=== PATIENT | female | born 2000 | race Caucasian/White ===

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

== ENCOUNTER 2019-02-04 14:24 | Emergency (ER) | payer OTHER ==
[2019-02-04 14:48] VITALS: BP 123/78
--- NOTE | 2019-02-04 15:05 | UC ---
Lower Extremity/Ankle HPI - HPI Summary HPI Summary: Patient is a 18yo female presenting with left ankle pain since 6 months ago when she sprained it that has worsened over the last two weeks. Describes it as "shocking pain" that is worse with ambulation and better with elevation and rest. She also notes bilateral pain in arches of feet. Denies numbness and tingling. Notes swelling. Denies bruising. Denies decreased ROM. She also complains of diffuse abdominal pain and 4 episodes of vomiting yesterday afternoon. Notes continued nausea today. Denies decreased appetite or fluid intake. Denies diarrhea. Notes history of ovarian cyst. LMP was one week ago. Denies possibility of . Denies urinary symptoms. Denies fever and chills. Denies SOB and chest pain. - History of Current Complaint Chief Complaint: UCLowerExtremity Stated Complaint: LEG PAIN AND SWELLING, AND VOMITING Hx Obtained From: Patient Hx Last Menstrual Period: 01/27/09 Severity Currently: Mild Pain Intensity: 3 Pain Scale Used: 0-10 Numeric - Allergies/Home Medications Allergies/Adverse Reactions: Allergies Allergy/AdvReac Type Severity Reaction Status Date / Time No Known Allergies Allergy Verified 02/04/19 14:34 PMH/Surg Hx/FS Hx/Imm Hx Other History Of: Negative For: HIV, Hepatitis B, Hepatitis C, Anticoagulant Therapy - Surgical History Surgical History: Yes Surgery Procedure, Year, and Place: T & A. EAR TUBES - Family History Known Family History: Positive: Cardiac Disease, Hypertension Negative: Blood Disorder - Social History Alcohol Use: Rare Substance Use Type: Marijuana Smoking Status (MU): Light Every Day Tobacco Smoker Type: Cigarettes Amount Used/How Often: 2-4 cig. a day Length of Time of Smoking/Using Tobacco: 5 Years Have You Smoked in the Last Year: Yes Household Exposure Type: Cigarettes - Immunization History Most Recent Influenza Vaccination: fall 2016 Vaccination Up to Date: Yes Review of Systems All Other Systems Reviewed And Are Negative: Yes Constitutional: Positive: Negative. Negative: Fever, Chills, Fatigue Skin: Positive: Negative Eyes: Positive: Negative ENT: Positive: Negative Respiratory: Positive: Negative. Negative: Shortness Of Breath, Cough Cardiovascular: Positive: Negative. Negative: Palpitations, Chest Pain Gastrointestinal: Positive: Vomiting, Nausea. Negative: Abdominal Pain, Diarrhea Genitourinary: Positive: Negative Neurovascular: Positive: Negative Musculoskeletal: Positive: Arthralgia, Edema. Negative: Decreased ROM, Myalgia Neurological: Positive: Negative. Negative: Headache Physical Exam Triage Information Reviewed: Yes Appearance: Well-Appearing, No Pain Distress, Obese Vital Signs: Initial Vital Signs Temp 99.4 F 02/04/19 14:36 Pulse 88 02/04/19 14:36 Resp 16 02/04/19 14:36 BP 123/78 02/04/19 14:36 Pulse Ox 99 02/04/19 14:36 Vital Signs Reviewed: Yes Eyes: Positive: Conjunctiva Clear ENT: Positive: Hearing grossly normal Neck exam: Normal Neck: Positive: Supple Respiratory Exam: Normal Respiratory: Positive: Lungs clear, Normal breath sounds, No respiratory distress, No accessory muscle use. Negative: Crackles, Rhonchi, Stridor, Wheezing Cardiovascular Exam: Normal Cardiovascular: Positive: RRR, Pulses Normal, Brisk Capillary Refill. Negative : Tachycardia Abdominal Exam: Normal Abdomen Description: Positive: Nontender, Soft. Negative: CVA Tenderness (R), CVA Tenderness (L), Distended, Guarding, McBurney's Point Tenderness Bowel Sounds: Positive: Present Musculoskeletal Exam: Normal Musculoskeletal: Positive: Strength Intact, ROM Intact, No Edema, Other: - no tenderness to palpation of left foot, ankle, leg, or knee. negative alma sign Neurological: Positive: Alert Psychological: Positive: Age Appropriate Behavior Skin Exam: Normal Skin: Positive: Other - no erythema or ecchymosis noted of left ankle, foot, leg , or knee. Diagnostics - Radiology left ankle Radiology Interpretation Completed By: Radiologist Summary of Radiographic Findings: FINDINGS: The soft tissues are unremarkable. The bone mineralization is within normal limits. No fracture is identified. An accessory navicular bone is redemonstrated. Anatomic alignment is maintained. The joint spaces are preserved. IMPRESSION: NO EVIDENCE FOR FRACTURE. Lower Extremity Course/Dx - Course Course Of Treatment: Discussed negative ankle xrays with patient and need for follow up with ortho if pain in ankle and arches continues. 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 Discussed stable VS with patient and that she may take zofran as prescribed for nausea. She received zofran and ibuprofen here for symptomatic relief. Instructed her to follow up if symptoms persist or go to the ED if symptoms worsen. Patient voiced understanding and agreed to the treatment plan. Discussed patient with Dr. Rosario who also agreed to the treatment plan. - Differential Dx/Diagnosis Provider Diagnosis: Left ankle pain, Nausea, Intermittent abdominal pain Discharge ED - Sign-Out/Discharge Documenting (check all that apply): Patient Departure All imaging exams completed and their final reports reviewed: Yes - Discharge Plan Condition: Stable Disposition: HOME Prescriptions: Ondansetron ODT TAB* [Zofran 4 MG Odt TAB*] 4 mg PO Q8H PRN #6 tab.odt PRN Reason: Nausea/Vomiting Forms: *Work Release Referrals: Marilu Castillo DO [Primary Care Provider] - If Needed Eris Fernandez MD [Medical Doctor] - If Needed Additional Instructions: As discussed, the xrays of the ankle did not show any fractures. Use rest, ice, elevation, and compression with an patrick wrap to help relieve ankle pain. You may also use over the counter pain medications as directed for relief of pain. If pain does not resolve, follow up with your PCP or orthopedics as listed below. Return or go to the emergency room if pain worsens, the foot becomes cold and numb, or you are not able to bear weight. As discussed, take the zofran as prescribed for your nausea and vomiting. Get plenty of rest and fluids. Eat a bland diet, such as bread, bananas, and rice while symptoms are present. If your symptoms do not resolve or you develop fever, excessive vomiting, or are unable to keep fluids down, go to the emergency department. - Billing Disposition and Condition Condition: STABLE Disposition: Home
[2019-02-04] MEDS ORDERED: Ondansetron ODT TAB* 4 MG SL ONE (15:14)
[2019-02-04] MEDS ORDERED: Ibuprofen TAB* 600 MG PO ONE (15:14)
== END 2019-02-04 16:05 | disposition home or self-care (01) ==
LOC: UCEAST 14:24
DX: M25.572 Pain in left ankle and joints of left foot (principal); M25.571 Pain in right ankle and joints of right foot; R10.9 Unspecified abdominal pain; R11.2 Nausea with vomiting, unspecified; E66.9 Obesity, unspecified; F17.210 Nicotine dependence, cigarettes, uncomplicated
CPT/HCPCS: 99212; A9270-GY; G0463

== ENCOUNTER 2019-02-28 14:25 | Emergency (ER) | payer OTHER ==
--- OUTSIDE RECORDS SUMMARY | 2019-02-28 14:29 | XMS REPORT | Continuity of Care Document ---
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 Inactive: 12/15/2018 Sprain of left ankle Onset: 12/15/2018 Inactive: 12/15/2018 Obesity Onset: 09/12/2018 Inactive: 09/12/2018 Arthralgia of the ankle and/or foot Onset: 09/12/2018 Inactive: 09/12/2018 Smoker Onset: 09/12/2018 Inactive: 09/12/2018 Social History Type Date Description Comments Sex Unknown Allergies, Adverse Reactions, Alerts Description No Information Available Medications Active Medications SIG Qnty Indications Ordering Date Provider Miconazole Nitrate 1 Isabel twice daily 1units Unknown 12/15/2018 Powder N/A; apply twice daily to rash on abdomen Citalopram Hydrobromide Oral; Take One 30tabs Unknown 07/24/2018 Tablet By Mouth 40mg Tablets Every Day Risperidone Oral; Take One 60tabs Unknown 01/10/2018 0.5mg Tablets Tablet By Mouth Twice A Day Methylphenidate Oral; Take 30tabs Unknown 09/04/2017 Hydrochloride ER Onetablet By 36mg Mouth Every Day Tablets ER 24HR Maximum Daily Dose = 1 Medications Administered in Office Medication SIG Qnty Indications Ordering Provider Date Meningococcal Conjugate Vaccine Unknown 11/30/2016 (Menveo) Injection Injection 150 MG (Depo-Provera) Unknown 07/30/2014 Injection Injection 150 MG (Depo-Provera) Unknown 04/23/2014 Injection Injection 150 MG (Depo-Provera) Unknown 01/22/2014 Injection Meningococcal Conjugate Vaccine Unknown 12/25/2010 (Menveo) Injection DTaP Vaccine Younger Than 7 Unknown 04/01/2003 (Infanrix) Injection DTaP Vaccine Younger Than 7 Unknown 07/10/2000 (Infanrix) Injection DTaP Vaccine Younger Than 7 Unknown 01/08/2000 (Infanrix) Injection DTaP Vaccine Younger Than 7 Unknown 1999 (Infanrix) Injection DTaP Vaccine Younger Than 7 Unknown 1999 (Infanrix) Injection Immunizations CPT Code Status Date Vaccine Lot # [id number] Given 04/25/2018 Influenza Virus Vaccine, Quadrivalent, Split Virus, Im Use 0.5ML 13148 Given 04/25/2018 Flu < 65 years 11934 Given 04/25/2018 Influenza Virus Vaccine, Quadrivalent, Split, Preservative Free 55916 Given 04/25/2018 Flumist 45159 Given 04/25/2018 Flu High Dose 78338 Given 04/25/2018 Influenza Virus Vaccine, Split, Preserv Free, Intradermal Use 77599 Given 05/03/2017 Bexsero - Men B 47972 Given 01/11/2017 Influenza Virus Vaccine, Split, Preserv Free, Intradermal Use 51133 Given 01/11/2017 Flu High Dose 30473 Given 01/11/2017 Flumist 70750 Given 01/11/2017 Influenza Virus Vaccine, Quadrivalent, Split, Preservative Free 00719 Given 01/11/2017 Flu < 65 years 20611 Given 01/11/2017 Influenza Virus Vaccine, Quadrivalent, Split Virus, Im Use 0.5ML 20257 Given 03/08/2016 Influenza Virus Vaccine, Quadrivalent, Split Virus, Im Use 0.5ML 78603 Given 03/08/2016 Flu < 65 years 32019 Given 03/08/2016 Influenza Virus Vaccine, Quadrivalent, Split, Preservative Free 25183 Given 03/08/2016 Flumist 43142 Given 03/08/2016 Flu High Dose 77256 Given 03/08/2016 Influenza Virus Vaccine, Split, Preserv Free, Intradermal Use 08824 Given 03/03/2015 Flu High Dose 53492 Given 03/03/2015 Flumist 18260 Given 03/03/2015 Influenza Virus Vaccine, Quadrivalent, Split, Preservative Free 02066 Given 03/03/2015 Flu < 65 years 10754 Given 03/03/2015 Influenza Virus Vaccine, Quadrivalent, Split, Im Use 0.25ML 82185 Given 03/03/2015 Influenza Virus Vaccine, Quadrivalent, Split, Im Use 0.25ML 27326 Given 03/03/2015 Influenza Virus Vaccine, Quadrivalent, Split, Im Use 0.25ML 25556 Given 01/19/2013 Influenza Virus Vaccine Split Virus Intramuscular Use 0.5ML 68992 Given 01/19/2013 Flu High Dose 61329 Given 01/19/2013 Flumist 41927 Given 01/19/2013 Influenza Virus Vaccine, Quadrivalent, Split, Preservative Free 93392 Given 01/19/2013 Flu < 65 years 62037 Given 01/19/2013 Influenza Virus Vaccine, Quadrivalent, Split, Im Use 0.25ML 03261 Given 01/19/2013 Influenza Virus Vaccine, Quadrivalent, Split, Im Use 0.25ML 45764 Given 01/19/2013 Influenza Virus Vaccine, Quadrivalent, Split, Im Use 0.25ML 24895 Given 01/19/2013 Influenza Virus Vaccine, Quadrivalent, Split, Im Use 0.25ML 19657 Given 07/24/2012 HPV Gardasil 9 88960 Given 07/24/2012 HPV Vaccine Type 6,11,16,18 3 Dose Schedule Intramuscular Use 90638 Given 03/25/2012 HPV Gardasil 9 89095 Given 03/25/2012 HPV Vaccine Type 6,11,16,18 3 Dose Schedule Intramuscular Use 77072 Given 01/10/2012 HPV Vaccine Type 6,11,16,18 3 Dose Schedule Intramuscular Use 64419 Given 01/10/2012 HPV Gardasil 9 60349 Given 01/10/2012 Influenza Virus Vaccine Intranasal 56898 Given 01/10/2012 Flu High Dose 46456 Given 01/10/2012 Flumist 10081 Given 01/10/2012 Influenza Virus Vaccine, Quadrivalent, Split, Preservative Free 34437 Given 01/10/2012 Flu < 65 years 75716 Given 01/10/2012 Influenza Virus Vaccine, Quadrivalent, Split, Im Use 0.25ML 48162 Given 01/10/2012 Influenza Virus Vaccine, Quadrivalent, Split, Im Use 0.25ML 00014 Given 01/10/2012 Influenza Virus Vaccine, Quadrivalent, Split, Im Use 0.25ML 89970 Given 12/25/2010 Hep A Adult for >18 yrs Havrix/Vaqta 82344 Given 12/25/2010 Hep A Peds for <19yrs Havrix/Vaqta 80584 Given 12/25/2010 Influenza Virus Vaccine Intranasal 91247 Given 12/25/2010 Influenza Virus Vaccine, Quadrivalent, Split, Im Use 0.25ML 44272 Given 12/25/2010 Mening Acwy - Menveo/Menactra 27270 Given 11/08/2010 Tdap - Boostrix/Adacel 49568 Given 11/08/2010 Tdap - Boostrix/Adacel 40694 Given 11/08/2010 Tdap - Boostrix/Adacel 44930 Given 04/13/2010 Influenza Virus Vaccine, Quadrivalent, Split, Im Use 0.25ML 68349 Given 04/13/2010 Influenza Virus Vaccine, Quadrivalent, Split, Im Use 0.25ML 25756 Given 04/13/2010 Influenza Virus Vaccine Split Virus Intramuscular Use 0.5ML 95116 Given 12/22/2009 Hep A Adult for >18 yrs Havrix/Vaqta 76743 Given 12/22/2009 Hep A Peds for <19yrs Havrix/Vaqta 25184 Given 05/10/2009 Influenza Virus Vaccine, Quadrivalent, Split, Im Use 0.25ML 98547 Given 05/10/2009 H1N1 Immunization Admin (Intramuscular,Intranasal) Inc Counseling 07403 Given 01/28/2009 Influenza Virus Vaccine, Quadrivalent, Split, Im Use 0.25ML 89240 Given 01/28/2009 Influenza Virus Vaccine Split Virus Intramuscular Use 0.5ML 92021 Given 01/30/2008 Influenza Virus Vaccine, Quadrivalent, Split, Im Use 0.25ML 80727 Given 01/30/2008 Influenza Virus Vaccine Split Virus Intramuscular Use 0.5ML 91496 Given 12/16/2007 Varicella (Chicken Pox) Vaccine 14669 Given 03/27/2006 Influenza Virus Vaccine Intranasal 79790 Given 02/13/2006 Influenza Virus Vaccine Intranasal 20329 Given 2005 Influenza Virus Vaccine Split Virus Intramuscular Use 0.5ML 83261 Given 04/01/2003 Polio - Ipol 73672 Given 04/01/2003 MMR Vaccine 98674 Given 04/11/2000 Polio - Ipol 83010 Given 04/11/2000 MMR Vaccine 21812 Given 1999 Polio - Ipol 21532 Given 1999 Polio - Ipol Vital Signs Date Vital Result Comment 02/06/2019 4:22pm BP Systolic 116 mmHg BP Diastolic 62 mmHg Heart Rate 109 /min Body Temperature 98.2 F O2 % BldC Oximetry 98 % 12/15/2018 3:47pm BP Systolic 128 mmHg Weight 289.00 lb Heart Rate 90 /min Body Temperature 97.5 F O2 % BldC Oximetry 97 % Weight Percentile >97th Results Description No Information Available Procedures Date Code Description Status 12/15/2018 39779 Brief Emotional/Behav Assessment W/ Scoring Doc Per Completed Standard Inst 09/12/2018 45430 Brief Emotional/Behav Assessment W/ Scoring Doc Per Completed Standard Inst Medical Devices Description No Information Available Encounters Type Date Location Provider Dx Diagnosis Office Visit 02/06/2019 4:15p [facility] Marilu Castillo, DO R11.0 Nausea M25.571 Pain in right ankle and joints of right foot Assessments Date Code Description Provider 02/06/2019 R11.0 Nausea Marilu CastilloDO 02/06/2019 M25.571 Pain in right ankle and joints of right foot Marilu CastilloDO Plan of Treatment 02/06/2019 - Marilu Castillo DOR11.0 NauseaComments:Suspect viral illness and things are improvingDenies possibility of Discussed continue supportive care and zofran if neededcontinue bland diet and increase as toleratedtake a few more days torecover before 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
--- OUTSIDE RECORDS SUMMARY | 2019-02-28 14:29 | XMS REPORT | Continuity of Care Document ---
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 Medicine Problems Active Problems Provider Date Sprain of ankle Donaldo Espino MD Onset: 02/28/2018 Social History Type Date Description Comments Sex Unknown ETOH Use Denies alcohol use Tobacco Use Start: Unknown Patient is a current smoker, smokes every day Smoking Status Reviewed: 02/25/19 Patient is a current smoker, smokes every day Exercise Type/Frequency Exercises sporadically Allergies, Adverse Reactions, Alerts Description No Known Drug Allergies Medications Active Medications SIG Qnty Indications Ordering Provider Date Risperidone 1/2 pill twice a Unknown 0.5mg Tablets day by mouth for 2 weeks then 1/2 pill in in the morning and 1 in at night Citalopram Hydrobromide 1 by mouth every Unknown 20mg day Tablets Methylphenidate Unknown Hydrochloride CD Immunizations Description No Information Available Vital Signs Date Vital Result Comment 02/25/2019 3:01pm Height 68 inches 5'8" Weight 280.00 lb Heart Rate 96 /min BP Systolic 120 mmHg BP Diastolic 72 mmHg Respiratory Rate 16 /min Pain Level 2 BMI (Body Mass Index) 42.6 kg/m2 Height Percentile 93 % Weight Percentile >97th 02/28/2018 11:03am Height 68 inches 5'8" Weight 281.00 lb Heart Rate 88 /min Respiratory Rate 18 /min Body Temperature 98.7 F Pain Level 4 BMI (Body Mass Index) 42.7 kg/m2 Blood Pressure Percentile 0 % Height Percentile 93 % Weight Percentile >97th Results Description No Information Available Procedures Description No Information Available Medical Devices Description No Information Available Encounters Description No Information Available Assessments Date Code Description Provider 02/25/2019 S93.492D Sprain of other ligament of left ankle, Donaldo Espino MD subsequent encounter 02/25/2019 M25.562 Pain in left knee Donaldo Espino MD Plan of Treatment 02/25/2019 - Donaldo Espino, MDS93.492D Sprain of other ligament of left ankle, subsequent encounterNew Therapy:Physical TherapyFollow up:As [id number] Pain in left kneeNew Therapy:Physical Therapy Functional Status Description No Information Available Mental Status Description No Information Available Referrals Description No Information Available
[2019-02-28 14:58] VITALS: BP 124/63
[2019-02-28] MEDS ORDERED: Ketorolac *IM* INJ* 60 MG/2 ML VIAL IM ONE (15:13)
--- NOTE | 2019-02-28 15:13 | UC ---
UC General HPI - HPI Summary HPI Summary: started with mild abd pain 4 days ago, vomited and had diarrhea next day. has had little appetite for 2-3 day s, today has migraine headache - took Tylenol today but no other pain meds. 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 Hx Last Menstrual Period: 02/23/2019 Onset/Duration: Gradual Onset Timing: Constant Onset Severity: Mild Current Severity: Moderate Pain Intensity: 7 Associated Signs & Symptoms: Positive: Abdominal Pain, Headache, Vomiting - Allergy/Home Medications Allergies/Adverse Reactions: Allergies Allergy/AdvReac Type Severity Reaction Status Date / Time No Known Allergies Allergy Verified 02/28/19 14:58 PMH/Surg Hx/FS Hx/Imm Hx Previously Healthy: Yes GI/ History: Other - ovarian cysts Neurological History: Migraine Psychological History: Depression Other History Of: Negative For: HIV, Hepatitis B, Hepatitis C, Anticoagulant Therapy - Surgical History Surgical History: Yes Surgery Procedure, Year, and Place: T & A. EAR TUBES - Family History Known Family History: Positive: Cardiac Disease, Hypertension Negative: Blood Disorder - Social History Occupation: Employed Full-time - [employer] Lives: With Family Alcohol Use: Rare Substance Use Type: Marijuana Smoking Status (MU): Light Every Day Tobacco Smoker Type: Cigarettes Amount Used/How Often: 2-4 cig. a day Length of Time of Smoking/Using Tobacco: 5 Years Have You Smoked in the Last Year: Yes Household Exposure Type: Cigarettes Cessation Counseling: Patient Advised to Stop - Immunization History Most Recent Influenza Vaccination: fall 2016 Vaccination Up to Date: Yes Review of Systems All Other Systems Reviewed And Are Negative: Yes Constitutional: Positive: Negative. Negative: Fever, Chills Skin: Positive: Negative. Negative: Rash Respiratory: Positive: Negative Cardiovascular: Positive: Negative Gastrointestinal: Positive: Abdominal Pain, Vomiting, Diarrhea, Nausea Genitourinary: Positive: Negative Neurological: Positive: Headache Psychological: Positive: Negative Is Patient Immunocompromised?: No Physical Exam Triage Information Reviewed: Yes Appearance: Pain Distress - holding head, Obese Vital Signs: Initial Vital Signs Temp 97.8 F 02/28/19 14:51 Pulse 96 02/28/19 14:51 Resp 16 11/02/19 14:51 BP 124/63 02/28/19 14:51 Pulse Ox 97 02/28/19 14:51 Vital Signs Reviewed: Yes Eye Exam: Normal Neck exam: Normal Neck: Positive: No Lymphadenopathy Respiratory Exam: Normal Respiratory: Positive: Lungs clear Cardiovascular Exam: Normal Cardiovascular: Positive: RRR Abdomen Description: Positive: No Organomegaly, Soft, Other: - minor tenderness bilateral lower abd. no rebound tenderness. Negative: CVA Tenderness (R), CVA Tenderness (L), McBurney's Point Tenderness, Peritoneal Signs Skin Exam: Normal Re-Evaluation - Re-Evaluation First Eval Re-Evaluation Time: 15:30 - headache pain resolving Change: Improved Second Eval Re-Evaluation Time: 16:00 - headache and abd pain improving, no new symps Change: Improved Course/Dx - Differential Dx - Multi-Symptom Differential Diagnoses: Urinary Tract Infection, Other - ovarian cyst, virak illness, migraine - Diagnoses Provider Diagnosis: Migraine, Abdominal pain Discharge ED - Sign-Out/Discharge Documenting (check all that apply): Patient Departure All imaging exams completed and their final reports reviewed: No Studies - Discharge Plan Condition: Improved Disposition: HOME Patient Education Materials: Migraine Headache (ED), Acute Abdominal Pain (ED) Forms: *Work Release Referrals: Marilu Castillo DO [Primary Care Provider] - 2 Days (if not improving) Additional Instructions: stay on clear liquid diet for 24 hours and then advance to bland foods No ibuprofen or Aleve/Naproxen for 24hours, you may use Tylenol If your head or abdominal pain worsens at anytime please report to ER - Billing Disposition and Condition Condition: IMPROVED Disposition: Home - Attestation Statements Provider Attestation: Per institutional requirements, I have reviewed the chart, however, I was not consulted specifically or made aware of this patient by the midlevel provider. I did not personally evaluate, interact with , or disposition this patient.
== END 2019-02-28 16:15 | disposition home or self-care (01) ==
LOC: UCEAST 14:25
DX: R10.31 Right lower quadrant pain (principal); R10.32 Left lower quadrant pain; G43.909 Migraine, unspecified, not intractable, without status migrainosus; R19.7 Diarrhea, unspecified; R11.2 Nausea with vomiting, unspecified; F17.210 Nicotine dependence, cigarettes, uncomplicated
CPT/HCPCS: 96372; 99211; G0463; J1885

== ENCOUNTER 2019-03-30 15:35 | Emergency (ER) | payer OTHER ==
[2019-03-30 15:45] VITALS: BP 144/89
--- NOTE | 2019-03-30 16:24 | UC ---
Respiratory Complaint HPI - HPI Summary HPI Summary: 19 y/o female presents to the urgent care accompany by mother c/o productive cough w/ yellowish phlegm for the past 5 days. Pt reports symptoms started w/ nasal congestion, mild sore throat and PND, but now has worsen w/ the cough. Mother concerned about bronchitis. She hasn't been able to sleep well due to cough. Pt denies fever, but has experience some chills. She has been taking Mucinex PO to alleviate symptoms. Pt also c/o of a mildly painful lump in the left ring finger for the past 1 week s/p helping her Dad w/ manual work at home. She feels like a spur in her finger joint. Pain is 3/10 and has not taking anything for pain. She can move finger w/o any difficulty. Pt denies fever, SOB, wheezing, numbness or tingling sensation over her fingers, chest pain, abdominal pain, N/V/d. LMP:02/08/2019 and on OCP. Pt declines test. Pt w/ Hx of sinusitis and recurrent ear infections as per mother - History of Current Complaint Chief Complaint: UCGeneralIllness Stated Complaint: URI, FINGER ISSUE Time Seen by Provider: 03/30/19 16:23 Hx Obtained From: Patient Hx Last Menstrual Period: 1 month ago Onset/Duration: Gradual Onset, Lasting Days - 5 days, Still Present, Worse Since - 2 days Timing: Intermittent Episodes Severity Initially: Mild Severity Currently: Mild Pain Intensity: 3 Pain Scale Used: 0-10 Numeric Character: Cough: Productive, Sputum Description: - yellowish Aggravating Factors: Recumbent Position Alleviating Factors: OTC Meds Associated Signs And Symptoms: Positive: Chills, URI, Nasal Congestion, Sinus Discomfort. Negative: Fever, Wheezing - Risk Factors Pulmonary Embolism Risk Factors: Negative Cardiac Risk Factors: Negative Pseudomonas Risk Factors: Negative Tuberculosis Risk Factors: Negative - Allergies/Home Medications Allergies/Adverse Reactions: Allergies Allergy/AdvReac Type Severity Reaction Status Date / Time No Known Allergies Allergy Verified 03/30/19 15:45 Home Medications: Home Medications Control 1 tab PO DAILY 03/30/19 [History Confirmed 03/30/19] guaiFENesin [Mucinex] 03/30/19 [History] PMH/Surg Hx/FS Hx/Imm Hx Previously Healthy: Yes Psychological History: Anxiety, Depression Other History Of: Negative For: HIV, Hepatitis B, Hepatitis C, Anticoagulant Therapy - Surgical History Surgical History: Yes Surgery Procedure, Year, and Place: T & A. EAR TUBES - Family History Known Family History: Positive: Cardiac Disease, Hypertension Negative: Blood Disorder - Social History Occupation: Student Lives: With Family Alcohol Use: Rare Substance Use Type: Marijuana Smoking Status (MU): Light Every Day Tobacco Smoker Type: Cigarettes Amount Used/How Often: 2-4 cig. a day Length of Time of Smoking/Using Tobacco: 5 Years Have You Smoked in the Last Year: Yes Household Exposure Type: Cigarettes - Immunization History Most Recent Influenza Vaccination: fall 2016 Vaccination Up to Date: Yes Review of Systems All Other Systems Reviewed And Are Negative: Yes Constitutional: Positive: Chills Skin: Positive: Negative Eyes: Positive: Negative ENT: Positive: Sore Throat, Nasal Discharge - yellowish, Sinus Congestion, Sinus Pain/Tenderness, Other - PND Respiratory: Positive: Cough - productive w/ yellowish phlegm Cardiovascular: Positive: Negative Gastrointestinal: Positive: Negative Genitourinary: Positive: Negative Motor: Positive: Negative Neurovascular: Positive: Negative Musculoskeletal: Positive: Other: - left ring finger painful lump Neurological: Positive: Negative Psychological: Positive: Negative Is Patient Immunocompromised?: No Physical Exam - Summary Physical Exam Summary: Vital Signs Reviewed: Yes General: well developed, well nourished obese female sitting in the examining table w/o any apparent distress Eyes: Positive: Conjunctiva Clear - PERRLA, EOMI, fundi grossly normal ENT: Positive: Normal ENT inspection, Hearing grossly normal, Pharynx normal, Nasal congestion - edematous and erythematous nasal mucosa, Nasal drainage - yellowish drainage, TMs normal. Negative: Tonsillar swelling, Tonsillar exudate Neck: Positive: Supple, Nontender, No Lymphadenopathy Respiratory: no orthopnea or dyspnea. Able to speak in full sentences, no retractions or accessory muscle use, no tripod position, stridor, or head bobbing. Positive breath sounds bilaterally. diffuse scattered rhonchi on posterior b/L lungs, no wheezing, no crackles or rales. Cardiovascular: Positive: RRR, No Murmur, Pulses Normal, Brisk Capillary Refill Abdomen Description: Positive: Nontender, No Organomegaly, Soft. Negative: CVA Tenderness (R), CVA Tenderness (L) Bowel Sounds: Positive: Present Musculoskeletal: Left Hand/Fingers: the L hand is without obvious asymmetry or deformity when compared to the R hand. no soft tissue swelling, no erythema, atrophy, or obvious deformity. No surface trauma, open wounds,bony deformity. Normal cascade of fingers. Normal flexion and extension of fingers,. Left 4th PIPJ ventral side w/ a discrete tender discrete nodule on palpation, no swelling or redness observed. FDS and FDP intact against resistance. No focal fullness, throbbing pain, swelling of finger tip. Pulses and capillary refill WNL, positive reflexes and sensation intact Neurological Exam: Normal Psychological Exam: Normal Skin Exam: Normal Triage Information Reviewed: Yes Vital Signs: Initial Vital Signs Temp 97 F 03/30/19 15:42 Pulse 91 03/30/19 15:42 Resp 18 03/30/19 15:42 BP 144/89 03/30/19 15:42 Pulse Ox 98 03/30/19 15:42 Respiratory Course/Dx - Course Course Of Treatment: 19 y/o female presents to the urgent care accompany by mother c/o productive cough w/ yellowish phlegm for the past 5 days. Pt reports symptoms started w/ nasal congestion, mild sore throat and PND, but now has worsen w/ the cough. Mother concerned about bronchitis. She hasn't been able to sleep well due to cough. Pt denies fever, but has experience some chills. She has been taking Mucinex PO to alleviate symptoms. Pt also c/o of a mildly painful lump in the left ring finger for the past 1 week s/p helping her Dad w/ manual work at home. She feels like a spur in her finger joint. Pain is 3/10 and has not taking anything for pain. She can move finger w/o any difficulty. Pt denies fever, SOB, wheezing, numbness or tingling sensation over her fingers, chest pain, abdominal pain, N/V/d. LMP:02/08/2019 and on OCP. Pt declines test.Pt w/ Hx of sinusitis and recurrent ear infections as per mother. Hx obtained. Pt is hemodynamically stable, A&OX3, Pt w/ mild diffuse scattered rhonchi on posterior b/L lungs, no wheezing, no crackles or rales, sinusitis and possible mucous cyst in the left 4th PIPJ on examination. O2Sat: 98%. Chest X-ray ordered to r/o pneumonia: Impression: no acute cardiopulmonary disease observed. Left 4th finger X-ray ordered: IMPRESSION: #. Negative radiographic exam of the LEFT fourth finger. Pt's finger symptoms discussed w/ Dr Sinclair and she recommend f/u w/ Dr Moreno for furterh management in possible mucous cyst. For her sinusitis Pt Rx Augmentin PO and flonase nasal spray. Advised to continue w/ Mucinex to alleviate cough. Advised to Return to the clinic or PCP in 3 days. Pt advised RICE for her left finger cyst and F/u with Orthopedic Dr moreno in 3 days for further evaluation and treatment.Pt's BP is elevated today advised to decrease salt in diet, monitor BP and f/u with PCP for further management. D/C instructions explained. Mother and Pt understood and agreed with plan of care. - Differential Dx/Diagnosis Differential Diagnosis/HQI/PQRI: Asthma, Bronchitis, Influenza, Laryngitis, Lower Resp Infection, Sinusitis, Other - pneumonia Provider Diagnosis: Acute bacterial sinusitis, Mucous cyst of finger, Elevated BP without diagnosis of hypertension Discharge ED - Sign-Out/Discharge Documenting (check all that apply): Patient Departure - D/C home All imaging exams completed and their final reports reviewed: Yes - Discharge Plan Condition: Stable Disposition: HOME Prescriptions: Amoxicillin/Clavulanate TAB* [Augmentin TAB 875*] 875 mg PO BID #14 tab Fluticasone NASAL SPRAY 50MCG* [Flonase NASAL SPRAY 50MCG*] 2 spray BOTH NARES DAILY #1 btl Patient Education Materials: Sinusitis (ED) Referrals: Marilu Castillo DO [Primary Care Provider] - 3 Days Eris Moreno MD [Medical Doctor] - 3 Days Additional Instructions: 1- Please increase fluid intake and rest. take full course of antibiotics to avoid resistance. Take yogurts w/ probiotics or Culturelle to protect your GI system 2-Use Flonase as directed to help drain fluid. Also buy saline drops to clear sinuses 3-Continue taking Mucinex PO to alleviate cough 4- Please take Ibuprofen PO 600mg q6-8hrs prn after meals to alleviate finger pain. Applu ice and keep finger immobilized w/ ROGERIO bandage and avoid strenuous exercise of heavy lifting. Please f/u w/ Orthopedic Dr Moreno if pain persists for further management. 5-Please f/u w/ your PCP in 3 days if symptoms do not improve for further management and treatment 6- Your BP is elevated today. please decrease salt in your diet, monitor BP and if it continues to be elevated please f/u with your PCP for further management. - Billing Disposition and Condition Condition: STABLE Disposition: Home
[2019-03-30] MEDS ORDERED: Ibuprofen TAB* 600 MG PO ONE (16:50)
--- OUTSIDE RECORDS SUMMARY | 2019-03-31 16:27 | XMS REPORT | Continuity of Care Document ---
:2000 External Reference #:[id number] Author Name SHAINA Alvarez Address [address] [place] [address] Problems Active Problems Provider Date Adult health [...] History Type Date Description Comments Sex Unknown Tobacco Use Start: Unknown Light tobacco smoker (10 or fewer cigarettes/day) Smoking Status Reviewed: 03/04/19 Light tobacco smoker (10 or fewer cigarettes/day) Allergies, Adverse Reactions, Alerts Description No Information Available Medications Active Medications SIG Qnty Indications Ordering Date Provider Levonorgestrel/Ethinyl take 1 tab by 84tabs Z30.9 SHAINA Alvarez 2018 Estradiol mouth for 84 days 0.15-0.03mg Tablets Naproxen 1 tab by mouth 60tabs Z30.9 SHAINA Alvarez 03/04/2019 500mg Tablets twice a day Miconazole Nitrate 1 Isabel twice daily 1units [...] CPT Code Status Date Vaccine Lot # [id number] Given 04/25/2018 Influenza Virus Vaccine, Quadrivalent, Split Virus, Im Use 0.5ML 15369 Given 04/25/2018 Flu < 65 years 58346 Given 04/25/2018 Influenza Virus Vaccine, Quadrivalent, Split, Preservative Free 18543 Given 04/25/2018 Flumist 02796 Given 04/25/2018 Flu High Dose 36464 Given 04/25/2018 Influenza Virus Vaccine, Split, Preserv Free, Intradermal Use 48959 Given 05/03/2017 Bexsero - Men B 79284 Given 01/11/2017 Influenza Virus Vaccine, Split, Preserv Free, Intradermal Use 85214 Given 01/11/2017 Flu High Dose 19665 Given 01/11/2017 Flumist 15923 Given 01/11/2017 Influenza Virus Vaccine, Quadrivalent, Split, Preservative Free 66016 Given 01/11/2017 Flu < 65 years 57989 Given 01/11/2017 Influenza Virus Vaccine, Quadrivalent, Split Virus, Im Use 0.5ML 23805 Given 03/08/2016 Influenza Virus Vaccine, Quadrivalent, Split Virus, Im Use 0.5ML 16549 Given 03/08/2016 Flu < 65 years 61598 Given 03/08/2016 Influenza Virus Vaccine, Quadrivalent, Split, Preservative Free 97161 Given 03/08/2016 Flumist 26286 Given 03/08/2016 Flu High Dose 09171 Given 03/08/2016 Influenza Virus Vaccine, Split, Preserv Free, Intradermal Use 16394 Given 03/03/2015 Flu High Dose 03897 Given 03/03/2015 Flumist 85222 Given 03/03/2015 Influenza Virus Vaccine, Quadrivalent, Split, Preservative Free 74461 Given 03/03/2015 Flu < 65 years 69852 Given 03/03/2015 Influenza Virus Vaccine, Quadrivalent, Split, Im Use 0.25ML 76783 Given 03/03/2015 Influenza Virus Vaccine, Quadrivalent, Split, Im Use 0.25ML 58587 Given 03/03/2015 Influenza Virus Vaccine, Quadrivalent, Split, Im Use 0.25ML 76434 Given 01/19/2013 Influenza Virus Vaccine Split Virus Intramuscular Use 0.5ML 99652 Given 01/19/2013 Flu High Dose 98007 Given 01/19/2013 Flumist 67518 Given 01/19/2013 Influenza Virus Vaccine, Quadrivalent, Split, Preservative Free 93532 Given 01/19/2013 Flu < 65 years 04601 Given 01/19/2013 Influenza Virus Vaccine, Quadrivalent, Split, Im Use 0.25ML 97389 Given 01/19/2013 Influenza Virus Vaccine, Quadrivalent, Split, Im Use 0.25ML 97233 Given 01/19/2013 Influenza Virus Vaccine, Quadrivalent, Split, Im Use 0.25ML 39310 Given 01/19/2013 Influenza Virus Vaccine, Quadrivalent, Split, Im Use 0.25ML 94825 Given 07/24/2012 HPV Gardasil 9 90101 Given 07/24/2012 HPV Vaccine Type 6,11,16,18 3 Dose Schedule Intramuscular Use 29928 Given 03/25/2012 HPV Gardasil 9 98951 Given 03/25/2012 HPV Vaccine Type 6,11,16,18 3 Dose Schedule Intramuscular Use 71683 Given 01/10/2012 HPV Vaccine Type 6,11,16,18 3 Dose Schedule Intramuscular Use 37125 Given 01/10/2012 HPV Gardasil 9 43145 Given 01/10/2012 Influenza Virus Vaccine Intranasal 19329 Given 01/10/2012 Flu High Dose 79511 Given 01/10/2012 Flumist 48652 Given 01/10/2012 Influenza Virus Vaccine, Quadrivalent, Split, Preservative Free 59610 Given 01/10/2012 Flu < 65 years 97559 Given 01/10/2012 Influenza Virus Vaccine, Quadrivalent, Split, Im Use 0.25ML 43779 Given 01/10/2012 Influenza Virus Vaccine, Quadrivalent, Split, Im Use 0.25ML 71879 Given 01/10/2012 Influenza Virus Vaccine, Quadrivalent, Split, Im Use 0.25ML 42222 Given 12/25/2010 Hep A Adult for >18 yrs Havrix/Vaqta 58619 Given 12/25/2010 Hep A Peds for <19yrs Havrix/Vaqta 95506 Given 12/25/2010 Influenza Virus Vaccine Intranasal 67583 Given 12/25/2010 Influenza Virus Vaccine, Quadrivalent, Split, Im Use 0.25ML 87233 Given 12/25/2010 Mening Acwy - Menveo/Menactra 91324 Given 11/08/2010 Tdap - Boostrix/Adacel 84374 Given 11/08/2010 Tdap - Boostrix/Adacel 10115 Given 11/08/2010 Tdap - Boostrix/Adacel 88025 Given 04/13/2010 Influenza Virus Vaccine, Quadrivalent, Split, Im Use 0.25ML 48992 Given 04/13/2010 Influenza Virus Vaccine, Quadrivalent, Split, Im Use 0.25ML 15183 Given 04/13/2010 Influenza Virus Vaccine Split Virus Intramuscular Use 0.5ML 18463 Given 12/22/2009 Hep A Adult for >18 yrs Havrix/Vaqta 82464 Given 12/22/2009 Hep A Peds for <19yrs Havrix/Vaqta 18949 Given 05/10/2009 Influenza Virus Vaccine, Quadrivalent, Split, Im Use 0.25ML 53920 Given 05/10/2009 H1N1 Immunization Admin (Intramuscular,Intranasal) Inc Counseling 42416 Given 01/28/2009 Influenza Virus Vaccine, Quadrivalent, Split, Im Use 0.25ML 95835 Given 01/28/2009 Influenza Virus Vaccine Split Virus Intramuscular Use 0.5ML 49486 Given 01/30/2008 Influenza Virus Vaccine, Quadrivalent, Split, Im Use 0.25ML 99475 Given 01/30/2008 Influenza Virus Vaccine Split Virus Intramuscular Use 0.5ML 53857 Given 12/16/2007 Varicella (Chicken Pox) Vaccine 04525 Given 03/27/2006 Influenza Virus Vaccine Intranasal 74282 Given 02/13/2006 Influenza Virus Vaccine Intranasal 20516 Given 2005 Influenza Virus Vaccine Split Virus Intramuscular Use 0.5ML 02438 Given 04/01/2003 Polio - Ipol 77084 Given 04/01/2003 MMR Vaccine 00028 Given 04/11/2000 Polio - Ipol 48347 Given 04/11/2000 MMR Vaccine 42831 Given 1999 Polio - Ipol 38902 Given 1999 Polio - Ipol Vital Signs Date Vital Result Comment 03/04/2019 1:44pm BP Systolic 128 mmHg BP Diastolic 78 mmHg Heart Rate 114 /min Body Temperature 98.9 F O2 % BldC Oximetry 97 % 02/06/2019 4:22pm BP Systolic 116 mmHg BP Diastolic 62 mmHg Heart Rate 109 /min Body Temperature 98.2 F O2 % BldC Oximetry 98 % Results Description No Information Available Procedures Date Code Description Status 12/15/2018 31136 Brief Emotional/Behav Assessment W/ Scoring Doc Per Completed Standard [facility] 09/12/2018 65910 Brief Emotional/Behav Assessment W/ Scoring Doc Per Completed Standard [facility] Medical Devices Description No Information Available Encounters Type Date Location Provider Dx Diagnosis Office Visit 03/04/2019 [facility] SHAINA Alvarez Z30.9 Encounter for 1:45p contraceptive management, unspecified R10.9 Unspecified abdominal pain Office Visit 02/06/2019 4:15p [facility] Marilu Castillo DO R11.0 Nausea M25.571 Pain in right ankle and joints of right foot Assessments Date Code Description Provider 03/04/2019 Z30.9 Encounter for contraceptive management, SHAINA Alvarez unspecified 03/04/2019 R10.9 Unspecified abdominal pain Ashanti Lozano, SHAINA 02/06/2019 R11.0 Nausea Marilubrittany Castillo, DO 02/06/2019 M25.571 Pain in right ankle and joints of right foot Marilubrittany Castillo, Plan of Treatment 03/04/2019 - Ashanti Lozano, GONSALOPZ30.9 Encounter for contraceptive management, unspecifiedNew Medication:Levonorgestrel/Ethinyl Estradiol 0.15-0.03 mg - take 1 tab by mouth for 84 daysNaproxen 500 mg - 1 tab by mouth twice a dayComments: discussed getting on OCP longacting to suppress menses and possibly control ovarian cysts from beingunmanagable urine negative discussed no protection from STI's and should use condoms 100% of the timereviewed ACHES method followup in 2 ogmpseY73.9 Unspecified abdominal painComments:discussed LLQ pain resolving able to tolerate fluids and foods continue to advance diet as tolerated take ibuprofen for pain with food as needed return if symptoms return and as needed Functional Status Description No Information Available Mental Status Description No Information Available Referrals Description No Information Available
== END 2019-03-30 17:48 | disposition home or self-care (01) ==
LOC: UCEAST 15:35
DX: J01.90 Acute sinusitis, unspecified (principal); B96.89 Other specified bacterial agents as the cause of diseases classified elsewhere; R03.0 Elevated blood-pressure reading, without diagnosis of hypertension; F17.210 Nicotine dependence, cigarettes, uncomplicated; R22.32 Localized swelling, mass and lump, left upper limb
CPT/HCPCS: 71046; 73140; 99212; A9270-GY; G0463

== ENCOUNTER → 2019-04-10 06:31 | Day surgery (SDC) | payer OTHER ==
--- NOTE | 2019-04-07 08:16 | HP ---
HISTORY AND PHYSICAL: DATE OF ADMISSION/SURGERY: 04/10/19 DATE OF OFFICE VISIT: 04/06/19 ATTENDING SURGEON: Dr. Chaparrita Garcia.* (DICTATED BY JONATHAN JONES) PROCEDURE: Left ring finger excision mass. CHIEF COMPLAINT: Left ring finger pain. HISTORY OF PRESENT ILLNESS: Juanita Arguelles is a 19-year-old female who presents today for a painful ganglion cyst on her left ring finger that has been increasingly bothering her and she would like to proceed with surgery to have it removed. PAST MEDICAL HISTORY: Hypertension, depression, and anxiety. PAST SURGICAL HISTORY: Tonsillectomy and adenoids. MEDICATIONS: 1. Risperidone 0.5 mg p.o. daily. 2. Methylphenidate hydrochloride p.o. daily. 3. Citalopram hydrobromide 20 mg p.o. daily. 4. Oral control pill p.o. daily. ALLERGIES: No known drug allergies. FAMILY HISTORY: Positive for hypertension and cancer. Negative for diabetes, coronary artery disease, stroke, rheumatoid arthritis, or lupus. Positive for DVT and PE in her father, but no known bleeding disorder or clotting disorder. SOCIAL HISTORY: She lives at home with her parents. She is not currently working. She is a smoker. She smokes less than half a pack per day x4 days. She occasionally uses recreational drugs including marijuana. She denies any alcohol use. She is right-hand dominant. REVIEW OF SYSTEMS: General: Negative for fevers, chills, night sweats, unexplained weight loss or gain. No known anesthesia problems. HEENT: Positive for headache. Negative for lightheadedness, syncopal episodes, or visual changes. Integumentary: Negative for abrasions, lesions, open wounds, or rashes. Cardiothoracic: Negative for chest pain, palpitations, or edema. Respiratory: Positive for cough. Negative for shortness of breath with exertion or wheezing. GI: Negative for nausea, vomiting, diarrhea, constipation, or GERD symptoms. : Positive for urinary frequency. Negative for nocturia, urinary urgency, history of UTIs or kidney problems. Musculoskeletal: Positive for left ring finger pain. Positive for chronic back pain. Negative for history of fractures. Neurologic: Negative for paresthesias, numbness, history of seizure, stroke, or poor balance. Positive for anxiety and depression. Endocrine: Negative for diabetes or thyroid issues. Hematologic: Negative for easy bruising, anemia, bleeding disorders, or a history of DVT or PE. ID: Negative for history of MRSA, infection, hep C, or HIV. PHYSICAL EXAMINATION GENERAL: Well-developed, well-nourished 19-year-old female, in no acute distress, appropriate mood and affect, appropriate dress and hygiene, alert and oriented. VITAL SIGNS: Height 68 inches, weight 294 pounds, pulse 60, BP 116/80, respirations 17, temperature 98.1. Pain level 4. BMI 44.7. HEENT: Normocephalic, atraumatic. PERRLA. Extraocular movements intact. NECK: Supple. PULMONARY: Lungs are clear to auscultation bilaterally. No wheezes, rales, or rhonchi. CARDIO: Regular rate and rhythm. S1, S2 normal. No murmurs, rubs, gallops. No edema. ABDOMEN: Positive bowel sounds. Soft and nontender. No organomegaly appreciated. NEUROLOGIC: A and O x3. Cranial nerves II through XII intact. Sensation is intact to light touch. MUSCULOSKELETAL: Left hand: Skin is intact with no abrasions or open wounds. There is no soft tissue swelling, erythema, or bruising. She has full range of motion of all digits without pain. She does have a ganglion cyst on the left ring finger that is tender to palpation. Paint Crew Supervisor strength is good. Sensation is intact to light touch in all nerve distributions. Radial pulse is 2+. IMPRESSION: Left ring finger ganglion cyst. PLAN: The patient is scheduled to undergo a left finger ring excision of mass on 04/10/[address] Garcia discussed the procedure as well as the risks and benefits with the patient. She elected to proceed. She will return to the office 10 days postop for followup and suture removal. A prescription for [place] will be e-scribed to the patient's pharmacy for postoperative pain management. JONATHAN JONES [id number]/[facility] #: [id number] [facility] HEALTHChidi
[~2019-04-10 06:31] MED LIST: Buffered Lidocaine 1% SYRIN* 1 ML/SYRINGE INTRADERM ONE; Dexamethasone IV* 4 MG/ML 1 ML (4 MG) ONE; DiMENhydriNATE IV* 50 MG/ML VIAL IV PUSH PRN; Famotidine IV* 10 MG/ML 2 ML (20 mg) IV ONE; Famotidine IV* 10 MG/ML 2 ML (20 mg) ONE; Ketorolac INJ* 30 MG/ML 1 ML VIAL ONE; Lactated Ringers 1000 ML Bag* 1,000 ML IV SCH; Lidocaine 1% INJ* 10 MG/ML 30 ML SDV ONE; Lidocaine 2% PF * 5 ML VIAL ONE; Midazolam* 1 MG/ML 5 ML VIAL (5 MG) ONE; Naloxone* 0.4 MG/ML 1 ML VIAL IV PRN; Ondansetron INJ* 2 MG/ML VIAL ONE; Propofol* 10 MG/ML 20 ML BTL ONE; fentaNYL* 50 MCG/ML 2 ML VIAL (100 MCG VIAL) IV PRN; fentaNYL* 50 MCG/ML 2 ML VIAL (100 MCG VIAL) ONE; oxyCODONE/Acetamin 5/325 MG* TAB PO PRN
[2019-04-10 09:17] VITALS: BP 123/78
--- NOTE | 2019-04-10 10:12 | OP ---
DATE OF OPERATION: 04/10/19 - SDS DATE OF : [birth year] SURGEON: Chaparrita Garcia MD MELLOWING MACHINE OPERATOR: JONATHAN Lunsford ANESTHESIA: Local MAC. PRE-OP DIAGNOSIS: Left ring finger mass. POST-OP DIAGNOSIS: Left ring finger mass. OPERATIVE PROCEDURE: Removal of left ring finger mass. ESTIMATED BLOOD LOSS: Zero. TOURNIQUET TIME: About 15 minutes. INDICATION FOR PROCEDURE: Juanita is a 19-year-old female who has a painful mass at the PIP flexion crease of her left ring finger. She presents for excision. DESCRIPTION OF PROCEDURE: The patient was brought to the operating room, was given a sedation anesthetic and a digital block with 10 cc of 1% plain lidocaine. The skin of her left hand and forearm was prepped and draped in the usual sterile fashion. The hand and forearm were exsanguinated and the tourniquet elevated to 250 mmHg. A transverse incision was made centered over the palpable mass. We dissected through the subcutaneous tissue down to the flexor tendon sheath. The mass was removed and sent for pathology and was removed along with small portion of the flexor tendon sheath. The wound was irrigated and the skin edges were reapproximated with 4-0 nylon suture. The wound was dressed with Xeroform, 4x4, Webril, and an Bridger wrap. The patient tolerated the procedure well and was brought to the recovery room in good condition. [id number]/[facility] #: [id number] MTDD
== END | disposition home or self-care (01) ==
LOC: OR 06:31
PROVIDERS: ATTEND Orthopaedic Surgery
PROC: 0LB80ZZ Excision of Left Hand Tendon, Open Approach (ICD-10-PCS; principal; 2019-04-10 08:00)
DX: M67.442 Ganglion, left hand (principal); I10 Essential (primary) hypertension; F41.8 Other specified anxiety disorders; F17.210 Nicotine dependence, cigarettes, uncomplicated
CPT/HCPCS: 81025; 88304; J1100; J1885; J2250; J2405; J2704; J3010

== ENCOUNTER 2019-05-17 18:40 | Emergency (ER) | payer OTHER ==
[2019-05-17] MEDS ORDERED: Charcoal ACTIVATED* 25 GM/120 ML BTL PO ONE (19:10)
[2019-05-17 19:29] LABS: ABS Eosinophils 0.1 10^3/ul (0-0.6); ABS Lymphocytes 2.5 10^3/ul (1.0-4.8); ABS Monocytes 0.7 10^3/ul (0-0.8); ABS Neutrophils 5.5 10^3/ul (1.5-7.7); Eosinophil % 0.6 %; Hematocrit 42 % (35-47); Hemoglobin 14.1 g/dL (12.0-16.0); Lymphocyte % 28.2 %; Mean Corpuscular HGB Conc 34 g/dL (31-36); Mean Corpuscular Hemoglobin 29 pg (27-31); Mean Corpuscular Volume 87 fL (80-97); Platelet Count 220 10^3/uL (150-450); Red Blood Count 4.83 10^6 /uL (3.70-4.87); Red Cell Distribution Width 14 % (10-15); White Blood Count 8.8 10^3/uL (3.5-10.8)
--- NOTE | 2019-05-17 19:33 | ED ---
Substance Abuse/Use - HPI Summary HPI Summary: 19 y/o female presented to [facility] after taking multiple medicines not prescribed to her at roughly 1800, listed below. Pt states she felt sad about her father's recent and tonight got into an argument with her mother and brother. After ingestion she stated that she felt sick and vomited 2-3 times. Pt has Hx of depression and bipolar disorder. 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, mother Hx Last Menstrual Period: 1 month ago Ingestion History: Type/Name Of Drug - See HPI, Approximate Time Of Ingestion - 1800 - Allergies/Home Medications Allergies/Adverse Reactions: Allergies Allergy/AdvReac Type Severity Reaction Status Date / Time No Known Allergies Allergy Verified 04/10/19 07:28 PMH/Surg Hx/FS Hx/Imm Hx Endocrine/Hematology History: Denies: Hx Anticoagulant Therapy, Hx Bone Marrow Disease, Hx Diabetes, Hx Sickle Cell Disease, Hx Thyroid Disease, Hx Anemia Cardiovascular History: Denies: Hx Angina, Hx Cardiomegaly, Hx Congestive Heart Failure, Hx Coronary Artery Disease, Hx Deep Vein Thrombosis, Hx Hypertension, Hx Myocardial Infarction, Hx Pacemaker/ICD, Hx Peripheral Vascular Disease, Hx Rheumatic Fever , Hx Valvular Heart Disease, Other Cardiovascular Problems/Disorders Respiratory History: Denies: Hx Asthma, Hx Chronic Obstructive Pulmonary Disease (COPD), Hx Lung Cancer, Hx Pneumonia, Hx Pulmonary Edema, Hx Pulmonary Embolism, Hx Sleep Apnea , Other Respiratory Problems/Disorders GI History: Denies: Hx Cirrhosis, Hx Crohn's Disease, Hx Gall Bladder Disease, Hx Gastroesophageal Reflux Disease, Hx Gastrointestinal Bleed, Hx Hiatal Hernia, Hx Irritable Bowel, Hx Jaundice, Hx Ulcer, Hx Urosepsis, Other GI Disorders History: Denies: Hx Kidney Infection, Hx Kidney Stones, Hx Renal Disease, Other Problems/Disorders Musculoskeletal History: Reports: Other Musculoskeletal History - GANGLION LEFT HAND Denies: Hx Arthritis, Hx Bursitis, Hx Tendonitis Sensory History: Reports: Hx Contacts or Glasses - GLASSES Denies: Hx Cataracts, Hx Glaucoma, Hx Hearing Aid Opthamlomology History: Reports: Hx Contacts or Glasses - GLASSES Denies: Hx Cataracts, Hx Glaucoma Neurological History: Denies: Hx Dementia, Hx Headaches, Hx Migraine, Hx Nerve Disease, Hx Seizures , Hx Transient Ischemic Attacks (TIA), Other Neuro Impairments/Disorders Psychiatric History: Reports: Hx Anxiety - NO MEDS, Hx Depression - ON MEDS, Other Psychiatric Issues/Disorders - bipolar disorder Denies: Hx Schizophrenia, Hx Bipolar Disorder - Cancer History Cancer Type, Location and Year: family hx Hx Chemotherapy: No - Surgical History Surgery Procedure, Year, and Place: T & A. EAR TUBES Hx Anesthesia Reactions: No Infectious Disease History: No Infectious Disease History: Denies: Hx Clostridium Difficile, Hx Hepatitis, Hx Human Immunodeficiency Virus (HIV), Hx of Known/Suspected MRSA, Hx Shingles, Hx Tuberculosis, Hx Known/ Suspected VRE, Hx Known/Suspected VRSA, History Other Infectious Disease, Traveled Outside the in Last 30 Days - Family History Known Family History: Positive: Cardiac Disease, Hypertension Negative: Blood Disorder - Social History Alcohol Use: Rare Substance Use Type: Reports: Marijuana Smoking Status (MU): Light Every Day Tobacco Smoker Type: Cigarettes Amount Used/How Often: 2-4 cig. a day Length of Time of Smoking/Using Tobacco: 5 Years Have You Smoked in the Last Year: Yes Review of Systems Positive: Vomiting, Nausea Positive: Depressed All Other Systems Reviewed And Are Negative: Yes Physical Exam - Summary Physical Exam Summary: Constitutional: Well-developed, Well-nourished, Alert. (-) Distressed Skin: Warm, Dry HENT: Normocephalic; Atraumatic Eyes: Conjunctiva normal Neck: Musculoskeletal ROM normal neck. (-) JVD, (-) Stridor, (-) Tracheal deviation Cardio: Rhythm regular, rate normal, Heart sounds normal; Intact distal pulses; Radial pulses are 2+ and symmetric. (-) Murmur Pulmonary/Chest wall: Effort normal. (-) Respiratory distress, (-) Wheezes, (-) Rales Abd: Soft, (-) tenderness, (-) Distension, (-) Guarding, (-) Rebound Musculoskeletal: (-) Edema Lymph: (-) Cervical adenopathy Neuro: Alert, Oriented x3 Psych: Tearful, depressed Triage Information Reviewed: Yes Vital Signs On Initial Exam: Initial Vitals Temp Pulse Resp BP Pulse Ox 98.6 F 90 19 184/101 100 05/17/19 18:48 05/17/19 18:48 05/17/19 18:48 05/17/19 18:48 05/17/19 18:48 Vital Signs Reviewed: Yes Procedures - Sedation Patient Received Moderate/Deep Sedation with Procedure: No Diagnostics - Vital Signs Vital Signs Temp Pulse Resp BP Pulse Ox 05/17/19 18:48 98.6 F 90 19 184/101 100 - Laboratory Result Diagrams: 05/17/19 19:23 05/17/19 19:23 Lab Statement: Any lab studies that have been ordered have been reviewed, and results considered in the medical decision making process. - EKG 1909 Cardiac Rate: NL EKG Rhythm: Sinus Rhythm Summary of EKG Findings: NSR at 86bpm. Normal intervals. No ischemic changes. No STEMI. The ED physician has reviewed and interpreted this EKG. Course/Dx - Course Course Of Treatment: Patient is here after an intentional overdose. Patient's father a couple weeks ago. Patient took some of his medicines. Patient initially did not recall they were but looked in his chart and called home and saw the medications and she confirmed how many she took. Patient did vomit immediately after and probably vomited the pills back up. Patient was asymptomatic and hypertensive upon arrival. Patient had an EKG which showed no changes. Patient had a toxicology workup which was grossly unremarkable. Patient denied taking any of her medicine in an overdose attempt. Post controls called and she'll be medically cleared at 1 AM. Patient was sent to Dr. Brown pending final medical clearance and mental health evaluation. - Diagnoses Provider Diagnoses: Intentional overdose of drug in tablet form, Depressed - Physician Notifications Discussed Care Of Patient With: Sandra Poison Control Time Discussed With Above Provider: 19:50 Instructed by Provider To: Other - Pt case was discussed with Sandra from Poison Control, who recommends monitoring the pt for 6 hours. She states the pt can be medically cleared for MHE if she is asymptomatic. Discharge ED - Sign-Out/Discharge Documenting (check all that apply): Sign-Out Patient Signing out patient TO: Tayler Brown - Pt signed out to Dr. Brown at 2200 termination of shift pending MHE after medical clearance at 0100. Receiving patient FROM: Jack Grier - Discharge Plan Referrals: Marilu Castillo DO [Primary Care Provider] - - Attestation Statements Document Initiated by Tony: Yes Documenting Scribe: Jimmy Mauricio Provider For Whom Tony is Documenting (Include Credential): Jack Grier MD Scribe Attestation: Jimmy Contreras, scribed for Jack Grier MD on 05/17/19 at 2137. Scribe Documentation Reviewed: Yes Provider Attestation: The documentation as recorded by the Jimmy snyder accurately reflects the service I personally performed and the decisions made by me, Jack Grier MD Status of Scribe Document: Viewed
--- OUTSIDE RECORDS SUMMARY | 2019-05-17 19:34 | XMS REPORT | Continuity of Care Document ---
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 Medicine Problems Active Problems Provider Date Sprain of ankle Donaldo Espino MD Onset: 02/28/2018 Social History Type Date Description Comments Sex Unknown ETOH Use Denies alcohol use Tobacco Use Start: Unknown Patient is a current smoker, smokes every day Smoking Status Reviewed: 04/21/19 Patient is a current smoker, smokes every day Exercise Type/Frequency Exercises sporadically Allergies, Adverse Reactions, Alerts Description No Known Drug Allergies Medications Active Medications SIG Qnty Indications Ordering Provider Date Risperidone 1/2 pill twice a Unknown 0.5mg Tablets day by mouth for 2 weeks then 1/2 pill in in the morning and 1 in at night Citalopram 1 by mouth every Unknown Hydrobromide day 20mg Tablets Control Pill Unknown History Medications Motrin Ib 3 tabs by mouth 60tabs Donaldo Espino MD 04/10/2019 - 200mg every 6 hours as 04/20/2019 Tablets needed for pain Immunizations Description No Information Available Vital Signs Date Vital Result Comment 04/21/2019 10:39am Height 68 inches 5'8" Weight 302.00 lb Heart Rate 92 /min Respiratory Rate 16 /min Body Temperature 98.2 F Pain Level 3 BMI (Body Mass Index) 45.9 kg/m2 04/06/2019 9:59am Height 68 inches 5'8" Weight 294.25 lb Heart Rate 60 /min BP Systolic 116 mmHg BP Diastolic 80 mmHg Respiratory Rate 17 /min Body Temperature 98.1 F Pain Level 4 BMI (Body Mass Index) 44.7 kg/m2 Results Test Acquired Date Facility Test Result H/L Range Note Surgical 04/10/2019 [facility] Surgical SEE RESULT [address] [place] [address] [phone] [facility]FR[facility] SEE IMAGE 1 SEE RESULT BELOW Name: THERESA BHANDARI : [address]: Chaparrita Garcia MD Acct: [id number] Unit: [id number] AGE: 19 Location: OR Re04/10/19 SEX: F [place] [facility] [place]: [id number] TIFFANY: 04/10/19- SUBM DR: Chaparrita Garcia MD REQ: [id number] RECD: 04/10/19 STATUS: SOUT _ ORDERED: LEVEL 3 FINAL DIAGNOSIS Left ring finger, excision: -- Ganglion cyst. PRE-OPERATIVE DIAGNOSIS Left finger ganglion cyst GROSS DESCRIPTION The specimen is received in formalin labeled, Left Ring Finger Mass, and consists of a 0.6 x 0.5 by up to 0.2 cm aggregate of cruz-white irregular fibrous tissue fragments admixed with scant yellow fat. Entirely submitted, one cassette. Signed by and Reported on: Radha Lacey MD 04/13/19 1406 END OF REPORT DEPARTMENT OF PATHOLOGY, [address] [place] [address] Moi Bazan M.D. Director [facility] # [id number] Procedures Description No Information Available Medical Devices Description No Information Available Encounters Type Date Location Provider Dx Diagnosis Office Visit 04/06/2019 [facility] Chaparrita Garcia, M67.442 Ganglion, left 9:45a at [place] MZeb hand Office Visit 02/25/2019 [facility] Srinivas, S93.492D Sprain of other 3:00p at [place] ligament of left ankle, subsequent encounter M25.562 Pain in left knee Assessments Date Code Description Provider 04/21/2019 M67.442 Ganglion, left hand Troy Christensen RPA-C 04/06/2019 M67.442 Ganglion, left hand Chaparrita Garcia M.D. 02/25/2019 S93.492D Sprain of other ligament of left Donaldo Espino MD ankle, subsequent encounter 02/25/2019 M25.562 Pain in left knee Donaldo Espino MD Plan of Treatment 04/21/2019 - Troy Christensen RPA-CM67.442 Ganglion, left handFollow up: Follow up: As needed Functional Status Description No Information Available Mental Status Description No Information Available Referrals Description No Information Available
[2019-05-17 19:45] LABS: ALT 15 U/L (7-52); AST 12 U/L (13-39); Albumin/Globulin Ratio 1.3 (1-3); Alkaline Phosphatase 59 U/L (34-104); Anion Gap 5 mmol/L (2-11); BUN/Creatinine Ratio 8.7 (8-20); Blood Urea Nitrogen 9 mg/dL (6-24); CO2 Carbon Dioxide 28 mmol/L (22-32); Chloride 106 mmol/L (101-111); EGFR African American 81.7 (>60); EGFR Non-African American 67.6 (>60); Glucose 83 mg/dL (70-100); Potassium 3.9 mmol/L (3.5-5.0); Sodium 139 mmol/L (135-145)
[2019-05-17 19:49] LABS: Urine Appearance Clear; Urine Bilirubin Negative (Negative); Urine Blood 3+ (Negative); Urine Color Straw; Urine Glucose Negative (Negative); Urine Ketones Negative (Negative); Urine Nitrite Negative (Negative); Urine Protein Negative (Negative); Urine Specific Gravity 1.006 (1.010-1.030); Urine Urobilinogen Negative (Negative)
[2019-05-17 19:53] LABS: Urine Bacteria Absent (Absent); Urine Red Blood Cell Trace(0-2/hpf) (Absent); Urine Squamous Epithelial Cell Present (Absent); Urine White Blood Cell Absent (Absent)
[2019-05-17] MEDS ORDERED: Ondansetron INJ* 2 MG/ML VIAL IV ONE (19:59)
[2019-05-17 20:06] LABS: Urine Benzodiazepine Screen None Detected (None Detect); Urine Opiates Screen None Detected (None Detect)
[2019-05-17 20:28] LABS: Acetaminophen < 15 mcg/mL; Alcohol < 10 mg/dL (<10); Salicylate < 2.50 mg/dL (<30)
[2019-05-17] MEDS ORDERED: Nicotine PATCH 14 MG/24 HR* PATCH TRANSDERM ONE (20:38)
--- NOTE | 2019-05-17 22:00 | ED ---
Progress - Progress Note Progress Note: The patient is a sign-out from Dr. Jack Grier MD, to Dr. Tayler Brown MD, at change of shift at 2200 on 05/17/2019, pending medical clearance, MHE, and disposition. Patient requesting control pill, but the one she takes is unavailable here , so she will be administered a similar OCP. Patient is medically clear for MHE at 0100. Mental health staff notified ED for plan for admission following Dr. Dominguez's evaluation. Re-Evaluation - Re-Evaluation First Eval Re-Evaluation Time: 01:00 Comment: Patient is medically clear for MHE. Course/Dx - Course Course Of Treatment: Patient requesting control pill, but the one she takes is unavailable here, so she will be administered a similar OCP. - Diagnoses Provider Diagnoses: Intentional overdose of drug in tablet form, Depressed - Provider Notifications Discussed Care Of Patient With: Dannielle Dominguez Instructed by Provider To: Other - Patient indicates need for admission, per Dr. Dominguez's evaluation. Discharge ED - Sign-Out/Discharge Documenting (check all that apply): Patient Departure - Patient admitted by Dr. Dominguez., Receiving Sign-Out Receiving patient FROM: Jack Grier - Patient is a sign-out from Dr. Jack Grier MD, at 2200 on 05/17/2019, pending medical clearance, MHE, and disposition. - Discharge Plan Condition: Stable Disposition: [facility]IATRIC FACILITY[place] [place] Referrals: Marilu Castillo DO [Primary Care Provider] - - Billing Disposition and Condition Condition: STABLE Disposition: Psychiatric Facility [facility] - Attestation Statements Document Initiated by Tony: Yes Documenting Scribe: Alanna Reyes Provider For Whom Tony is Documenting (Include Credential): Dr. Tayler Brown MD Scribe Attestation: Alanna Contreras scribed for Dr. Tayler Brown MD on 05/18/19 at 0341. Scribe Documentation Reviewed: Yes Provider Attestation: The documentation as recorded by the Alanna snyder accurately reflects the service I personally performed and the decisions made by me, Dr. Tayler Brown MD Status of Scribe Document: Viewed Procedures - Sedation Patient Received Moderate/Deep Sedation with Procedure: No
[2019-05-17] MEDS ORDERED: ETHINYL ESTRADIOL/DROSPIRENONE 1 EACH TABLET PO ONE (23:00)
[2019-05-18] MEDS ORDERED: Acetaminophen TAB* 325 MG PO ONE (00:14)
[2019-05-18 06:08] VITALS: BP 146/76
--- NOTE | 2019-05-18 07:39 | PN ---
ED Psychiatric Progress Note Date of Service: 05/17/19 Subjective: This is a 19 year-old F who is pending admission to [facility] secondary to SI, OD. Pt. examined in room 16 at 0735. Sleeping comfortably. Friend at beside. Objective: Vitals: Most recent vital signs documented below. General NAD, Laboratory: Current laboratory results documented below. Assessment: Depression. Plan: Pending admission. Vital Signs Temp Pulse Resp BP Pulse Ox 98.7 F 91 20 146/76 98 05/18/19 06:07 05/18/19 06:07 05/18/19 06:07 05/18/19 06:07 05/18/19 06:07 Lab Results - Entire Visit 05/17/19 05/17/19 05/17/19 19:40 19:40 19:23 WBC RBC Hgb Hct MCV MCH MCHC RDW Plt Count MPV Neut % (Auto) Lymph % (Auto) Dukes % (Auto) Eos % (Auto) Baso % (Auto) Absolute Neuts (auto) Absolute Lymphs (auto) Absolute Monos (auto) Absolute Eos (auto) Absolute Basos (auto) Absolute Nucleated RBC Nucleated RBC % VBG pH 7.42 VBG pCO2 42 VBG pO2 < 38.0 VBG HCO3 26.0 VBG O2 Saturation 71.5 VBG Base Excess 2.4 Sodium Potassium Chloride Carbon Dioxide Anion Gap BUN Creatinine Est GFR ( Amer) Est GFR (Non-Af Amer) BUN/Creatinine Ratio Glucose Calcium Total Bilirubin AST ALT Alkaline Phosphatase Total Protein Albumin Globulin Albumin/Globulin Ratio Urine Color Straw Urine Appearance Clear Urine pH 8.0 Ur Specific [place] 1.006 L Urine Protein Negative Urine Ketones Negative Urine Blood 3+ A Urine Nitrate Negative Urine Bilirubin Negative Urine Urobilinogen Negative Ur Leukocyte Esterase Negative Urine WBC (Auto) Absent Urine RBC (Auto) Trace(0-2/hpf) Ur Squamous Epith Cells Present A Urine Bacteria Absent Urine Glucose Negative Salicylates Urine Opiates Screen None detected Acetaminophen Ur Barbiturates Screen None detected Ur Phencyclidine Scrn None detected Ur Amphetamines Screen None detected U Benzodiazepines Scrn None detected Urine Cocaine Screen Presumptive positive A U Cannabinoids Screen Presumptive positive A Serum Alcohol 05/17/19 05/17/19 19:23 19:23 WBC 8.8 RBC 4.83 Hgb 14.1 Hct 42 MCV 87 MCH 29 MCHC 34 RDW 14 Plt Count 220 MPV 8.0 Neut % (Auto) 62.5 Lymph % (Auto) 28.2 Dukes % (Auto) 8.2 Eos % (Auto) 0.6 Baso % (Auto) 0.5 Absolute Neuts (auto) 5.5 Absolute Lymphs (auto) 2.5 Absolute Monos (auto) 0.7 Absolute Eos (auto) 0.1 Absolute Basos (auto) 0.0 Absolute Nucleated RBC 0.0 Nucleated RBC % 0.0 VBG pH VBG pCO2 VBG pO2 VBG HCO3 VBG O2 Saturation VBG Base Excess Sodium 139 Potassium 3.9 Chloride 106 Carbon Dioxide 28 Anion Gap 5 BUN 9 Creatinine 1.04 H Est GFR ( Amer) 81.7 Est GFR (Non-Af Amer) 67.6 BUN/Creatinine Ratio 8.7 Glucose 83 Calcium 9.0 Total Bilirubin 0.20 AST 12 L ALT 15 Alkaline Phosphatase 59 Total Protein 7.0 Albumin 4.0 Globulin 3.0 Albumin/Globulin Ratio 1.3 Urine Color Urine Appearance Urine pH Ur Specific [place] Urine Protein Urine Ketones Urine Blood Urine Nitrate Urine Bilirubin Urine Urobilinogen Ur Leukocyte Esterase Urine WBC (Auto) Urine RBC (Auto) Ur Squamous Epith Cells Urine Bacteria Urine Glucose Salicylates < 2.50 Urine Opiates Screen Acetaminophen < 15 Ur Barbiturates Screen Ur Phencyclidine Scrn Ur Amphetamines Screen U Benzodiazepines Scrn Urine Cocaine Screen U Cannabinoids Screen Serum Alcohol < 10
--- NOTE | 2019-05-18 10:33 | ED ---
Progress - Progress Note Progress Note: The patient is a sign-out from Dr. Tayler Brown to Dr. Vince Amaod at change of shift at 0700 on 05/18/[address] Harris re-evaluated the patient and determined she is safe for discharge to grieve at home with her family. Patient will be discharged home with dx of adjustment disorder. Re-Evaluation - Re-Evaluation First Eval Re-Evaluation Time: 10:32 Comment: Dr. Harris re-evaluated patient and states she can be discharged. Course/Dx - Course Course Of Treatment: The patient is a sign-out from Dr. Tayler Brown to Dr. Vince Amado at change of shift at 0700 on 05/18/[address] Harris re-evaluated the patient and determined she is safe for discharge to grieve at home with her family. Patient will be discharged home with dx of adjustment disorder. - Diagnoses Provider Diagnoses: Adjustment disorder - Provider Notifications Discussed Care Of Patient With: Jared Harris Time Discussed With Above Provider: 10:32 Instructed by Provider To: Other - Patient can be discharged. Discharge ED - Sign-Out/Discharge Documenting (check all that apply): Patient Departure - Discharge - Discharge Plan Condition: Stable Disposition: HOME Referrals: Marilu Castillo DO [Primary Care Provider] - - Attestation Statements Document Initiated by Scribe: Yes Documenting Scribe: Beto Pope Provider For Whom Scribe is Documenting (Include Credential): Vince Amado DO Scribe Attestation: I, Beto Pope, scribed for Vince Amado DO on 05/18/19 at 1031. Status of Scribe Document: Ready
[2019-05-18] MEDS ORDERED: Ondansetron TAB* 4 MG PO ONE (11:04)
== END 2019-05-18 10:50 | disposition home or self-care (01) ==
LOC: ED 18:40
DX: F43.20 Adjustment disorder, unspecified (principal); F31.9 Bipolar disorder, unspecified; F41.9 Anxiety disorder, unspecified; F17.210 Nicotine dependence, cigarettes, uncomplicated; T50.2X2A Poisoning by carbonic-anhydrase inhibitors, benzothiadiazides and other diuretics, intentional self-harm, initial encounter; T46.4X2A Poisoning by angiotensin-converting-enzyme inhibitors, intentional self-harm, initial encounter; T44.6X2A Poisoning by alpha-adrenoreceptor antagonists, intentional self-harm, initial encounter; T45.522A Poisoning by antithrombotic drugs, intentional self-harm, initial encounter; T46.6X2A Poisoning by antihyperlipidemic and antiarteriosclerotic drugs, intentional self-harm, initial encounter; T43.212A Poisoning by selective serotonin and norepinephrine reuptake inhibitors, intentional self-harm, initial encounter; Y92.9 Unspecified place or not applicable
CPT/HCPCS: 36415; 80053; 80307; 80320; 80329; 81003; 81015; 82803; 85025; 93005; 96374; 99285; A9270-GY; G0480; J2405

== ENCOUNTER 2019-07-23 15:05 | Emergency (ER) | payer OTHER ==
--- NOTE | 2019-07-23 16:05 | UC ---
Respiratory Complaint HPI - HPI Summary HPI Summary: 19 yo woman with a history of dry cough and headache x 1 day, without fever, chills, myalgias. She has not history of travel or contact with COVID 19. Her mom was diagnosed with flu B several days ago,and is improving. - History of Current Complaint Chief Complaint: UCHeadache Stated Complaint: THROAT PAIN Hx Obtained From: Patient Hx Last Menstrual Period: onBC Onset/Duration: Sudden Onset, Lasting Days - 2 Timing: Constant Severity Currently: Moderate Pain Intensity: 6 Character: Cough: Nonproductive Aggravating Factors: Recumbent Position Alleviating Factors: Nothing Associated Signs And Symptoms: Positive: Nasal Congestion. Negative: Dyspnea, Fever, Wheezing, Hemoptysis, Edema, URI - Risk Factors Pulmonary Embolism Risk Factors: Negative Cardiac Risk Factors: Negative Pseudomonas Risk Factors: Negative Tuberculosis Risk Factors: Negative - Allergies/Home Medications Allergies/Adverse Reactions: Allergies Allergy/AdvReac Type Severity Reaction Status Date / Time No Known Allergies Allergy Verified 07/23/19 15:56 Home Medications: Home Medications risperiDONE TAB* [Risperdal*] 1 mg PO QPM 03/15/17 [History Confirmed 07/23/19] Citalopram TAB* [Celexa TAB*] 40 mg PO QPM 07/14/17 [History Confirmed 07/23/19] Levonorgestrel-Ethin Estradiol [Levonor-Eth Estrad 0.15-0.03] 1 tab PO DAILY [History Confirmed 07/23/19] Oseltamivir CAP* [Tamiflu CAP*] 75 mg PO BID #10 cap 07/23/19 [Rx] traZODone TAB* [Desyrel TAB*] 50 mg PO DAILY 07/23/19 [History Confirmed ] PMH/Surg Hx/FS Hx/Imm Hx Previously Healthy: Yes Psychological History: Depression, Post Traumatic Stress Disorder Other History Of: Negative For: HIV, Hepatitis B, Hepatitis C, Anticoagulant Therapy - Surgical History Surgical History: Yes Surgery Procedure, Year, and Place: T & A. EAR TUBES - Family History Known Family History: Positive: Cardiac Disease, Hypertension, Other - father of stroke age 53 Negative: Blood Disorder - Social History Occupation: Unemployed Alcohol Use: None Alcohol Amount: 0 Substance Use Type: Marijuana Substance Use Comment - Amount & Last Used: daily marijuana smoker Smoking Status (MU): Light Every Day Tobacco Smoker Type: Cigarettes Amount Used/How Often: 2-4 cig. a day Length of Time of Smoking/Using Tobacco: 5 Years Have You Smoked in the Last Year: Yes Household Exposure Type: Cigarettes - Immunization History Most Recent Influenza Vaccination: fall 2016 Vaccination Up to Date: Yes Review of Systems All Other Systems Reviewed And Are Negative: Yes Constitutional: Positive: Fatigue Skin: Positive: Negative Eyes: Positive: Negative ENT: Positive: Sore Throat, Ear Ache Respiratory: Positive: Cough. Negative: Shortness Of Breath Cardiovascular: Positive: Negative Gastrointestinal: Positive: Negative Genitourinary: Positive: Negative Motor: Positive: Negative Neurovascular: Positive: Negative Musculoskeletal: Positive: Negative Neurological/Mental Status: Positive: Headache Psychological: Positive: Negative Is Patient Immunocompromised?: No Physical Exam Triage Information Reviewed: Yes Appearance: Well-Appearing - Mildly depressed affect, in no distress, No Pain Distress, Obese Eyes: Positive: Conjunctiva Clear ENT: Positive: Pharyngeal erythema, TM dull - right TM with scarring, left with mild serous fluid Neck: Positive: Supple, Nontender, No Lymphadenopathy Respiratory: Positive: Lungs clear, Normal breath sounds Cardiovascular: Positive: RRR, No Murmur Musculoskeletal Exam: Normal Neurological Exam: Normal Psychological Exam: Normal Skin Exam: Normal Diagnostics - Laboratory Lab Results: rapid flu + for influenza B Respiratory Course/Dx - Course Course Of Treatment: Discussed treatment, would like to try Tamiflu. - Differential Dx/Diagnosis Differential Diagnosis/HQI/PQRI: Bronchitis, Influenza, Sinusitis, Other - pharyngitis Provider Diagnosis: Influenza B Discharge ED - Sign-Out/Discharge Documenting (check all that apply): Patient Departure All imaging exams completed and their final reports reviewed: No Studies - Discharge Plan Condition: Stable Disposition: HOME Prescriptions: Oseltamivir CAP* [Tamiflu CAP*] 75 mg PO BID #10 cap Patient Education Materials: Influenza (ED) Referrals: Marilu Castillo DO [Primary Care Provider] - Additional Instructions: You have tested positive for influenza B. You have been prescribed Tamiflu to decrease the symptoms of flu. Please ensure that you increase fluids, and use acetaminophen or ibuprofen as needed to reduce pain or fever. As discussed, although you do not have a fever now, you could develop one over the next several days. Follow up if you develop shortness of breath or symptoms of dehydration. - Billing Disposition and Condition Condition: STABLE Disposition: Home
[2019-07-23 16:28] LABS: Influenza B Molecular POSITIVE (Negative)
== END 2019-07-23 16:55 | disposition home or self-care (01) ==
LOC: UCEAST 15:05
DX: J10.1 Influenza due to other identified influenza virus with other respiratory manifestations (principal); F32.9 Major depressive disorder, single episode, unspecified; Z79.899 Other long term (current) drug therapy; F17.200 Nicotine dependence, unspecified, uncomplicated
CPT/HCPCS: 87651; 99212; G0463

== ENCOUNTER 2023-09-23 21:01 | Observation (INO) ==
[2023-09-23] MEDS: Lactated Ringers 1000 ml BAG 1,000 ML IV ONE (22:05)
[2023-09-23 22:18] LABS: ABS Eosinophils 0.1 10^3/uL (0.0-0.5); ABS Lymphocytes 2.4 10^3/uL (1.0-4.8); ABS Monocytes 0.8 10^3/uL (0.0-0.9); ABS Neutrophils 6.9 10^3/uL (1.5-7.6); ABS Nucleated RBC 0.01 10^3/ul; Eosinophil % 0.9 %; Hematocrit 42.3 % (35-45); Lymphocyte % 23.6 %; Mean Corpuscular Hemoglobin 27.6 pg (27-33); Mean Corpuscular Hgb Conc 33.1 g/dL (31-36); Mean Corpuscular Volume 83.4 fL (80-97); Nucleated Red Blood Cells % 0.1 %/100WBC (0.0-0.8); Platelet Count 244 10^3/uL (150-450); Red Blood Count 5.07 10^6/uL (3.63-4.92); Red Cell Distribution Width 15.8 % (12-17); White Blood Count 10.3 10^3/uL (3.8-11.8)
[2023-09-23 22:24] LABS: INR 1.03 (0.83-1.13)
[2023-09-23 23:16] LABS: ALT 20 U/L (7-52); AST 13 U/L (13-39); Albumin 4.6 g/dL (3.2-5.2); Albumin/Globulin Ratio 1.7 (1-3); Alkaline Phosphatase 72 U/L (35-149); Anion Gap 6 mmol/L (2-16); Blood Urea Nitrogen 13 mg/dL (6-24); CO2 Carbon Dioxide 26 mmol/L (22-32); Calcium 9.3 mg/dL (8.6-10.3); Chloride 105 mmol/L (101-111); Creatinine, Serum 0.95 mg/dL (0.51-0.95); Globulin 2.7 g/dL (2-4); Glucose 95 mg/dL (70-100); Lipase 16 U/L (11.0-82.0); Potassium 4.6 mmol/L (3.5-5.0); Sodium 137 mmol/L (135-145); Total Bilirubin 0.2 mg/dL (0.2-1.0); Total Protein 7.3 g/dL (6.4-8.9); eGFR CKD-EPI 85.8 (>60)
[2023-09-23 23:23] LABS: HCG Pregnancy < 0.60 mIU/mL
[2023-09-23] MEDS: Iohexol 300 (CONTRAST) 10 ML SDV IV ONE (23:34)
[2023-09-24] MEDS ORDERED: HYDROmorphone 1 MG/1 ML SYRINGE IV SLOW PU PRN (01:31)
[2023-09-24] MEDS ORDERED: Ondansetron 4 mg VIAL 2 MG/ML 2 ml VIAL IV PRN (01:31)
[2023-09-24] MEDS ORDERED: Calcium Carb (TUMS) 500 mg CHEW TAB PO PRN (01:34)
[2023-09-24] MEDS: Piperacillin/Tazobac 3.375 BAG 3.375 GM/100 ML BAG IV ONE (02:43)
[2023-09-24 03:06] LABS: C Reactive Protein 2.85 mg/L (<8.01)
[2023-09-24] MEDS: NS 0.9% 1000 ml BAG 1,000 ML IV SCH (03:25)
[2023-09-24] MEDS: oxyCODONE/Acetamin 5/325 mg TAB PO PRN (05:05)
[2023-09-24] MEDS: Piperacillin/Tazobac 3.375 BAG 3.375 GM/100 ML BAG IV SCH (05:50)
[2023-09-24] MEDS: Nicotine PATCH 7 MG/24 HR PATCH TRANSDERM SCH (10:15)
[2023-09-24] MEDS ORDERED: Bupivacaine 0.25% EPI 200,000 30 ML SDV ONE (13:47)
[2023-09-24] MEDS ORDERED: Rocuronium 50 mg VIAL 10 mg/ml 5 ml VIAL (50 mg) ONE ×2 (13:59→14:13)
[2023-09-24] MEDS ORDERED: fentaNYL 250 mcg/5 ml 50 MCG/ML 5 ml VIAL (250 MCG) ONE ×2 (13:59→15:11)
[2023-09-24] MEDS ORDERED: Midazolam 2 mg/2 ml VIAL 1 mg/ml 2 ml VIAL (2 mg) ONE (13:59)
[2023-09-24] MEDS ORDERED: ceFOXitin 2 GM IVPREMIX 2 GM/50 ML BAG ONE (14:32)
[2023-09-24] MEDS ORDERED: Dexamethasone IV 4 MG/ML VIAL 1 ml VIAL ONE (14:39)
[2023-09-24] MEDS ORDERED: HYDROmorphone 0.5 MG/0.5 ML SYRINGE ONE (14:46)
[2023-09-24] MEDS ORDERED: Acetaminophen IV 1 GM/100ML 1,000 MG/100 ML BAG IV ONE (15:07)
[2023-09-24] MEDS ORDERED: Ondansetron 4 mg VIAL 2 MG/ML 2 ml VIAL ONE (15:25)
[2023-09-24] MEDS ORDERED: hydrALAZINE 20 mg/ml 1 ML Vial IV ONE (15:57)
[2023-09-24] MEDS: hydrALAZINE 20 mg/ml 1 ML Vial IV IV SLOW PU ONE (16:05)
[2023-09-24] MEDS ORDERED: fentaNYL 100 mcg/2 ml 50 MCG/ML VIAL ONE (16:31)
[2023-09-24] MEDS ORDERED: Naloxone 0.4 mg VIAL 0.4 mg/ml 1 ml VIAL IV PRN ×2 (16:32→16:33)
[2023-09-24] MEDS: fentaNYL 100 mcg/2 ml 50 MCG/ML VIAL IV PRN (16:40)
[2023-09-24 18:59] VITALS: BP 144/103
== END 2023-09-24 18:00 | disposition home or self-care (01) ==
LOC: EDHOLD 21:01 → ED 21:01 → SSU 09-24 03:44
PROVIDERS: ADMIT Surgery; ATTEND Surgery